=== PATIENT | male | born 1975 | race Caucasian/White ===

== ENCOUNTER 2019-12-25 16:18 | Emergency (ER) | payer BC, SELFPAY ==
[2019-12-25] MEDS ORDERED: ASPIRIN 81 MG CHEWABLE TABLET ONE (17:24)
[2019-12-25] MEDS ORDERED: NA CHLORIDE 0.9% 500 ML ONE (17:25)
[2019-12-25] MEDS ORDERED: NITROGLYCERIN 0.4 MG/TAB SL ONE ×2 (17:25→17:26)
--- NOTE | 2019-12-25 17:35 | RAD REPORT ---
EXAM DESCRIPTION: RAD - Chest Single View - 12/25/2019 5:05 pm CLINICAL HISTORY: CHEST PAIN COMPARISON: April 2016 TECHNIQUE: AP portable chest image was obtained 12/25/2019 5:05 pm . FINDINGS: Lungs are clear. Heart and vasculature are normal. No measurable pleural effusion and no p neumothorax. No acute bony abnormality seen. No acute aortic findings suspected. IMPRESSION: No acute cardiopulmonary process. No significant change from comparison.
[2019-12-25 17:48] LABS: Protime INR 0.93
[2019-12-25 17:49] LABS: Absolute Lymphocytes (CBC) 1.3 K/uL (0.7-4.9); Basophils % 0.8 % (0-1.3); Hematocrit 45.3 % (39.6-49.0); MPV 9.5 fL (7.6-11.3); RBC Red Blood Cell Count 5.13 M/uL (4.33-5.43)
[2019-12-25 17:57] LABS: ALT/SGPT 38 U/L (12-78); Alkaline Phosphatase 82 U/L (45-117); BUN Blood Urea Nitrogen 21 mg/dL (7-18); Bicarbonate 26 mmol/L (21-32); Bilirubin Direct < 0.1 mg/dL (0-0.2); Bilirubin Total 0.2 mg/dL (0.2-1.0); Glucose Level 123 mg/dL (74-106); NT PRO-BNP 6 pg/mL (<125); Sodium Level 143 mmol/L (136-145); Troponin (Emerg Dept Use Only) < 0.02 ng/mL (0.0-0.045)
[2019-12-25 17:58] LABS: AST/SGOT 21 U/L (15-37); Magnesium 2.2 mg/dL (1.8-2.4)
[2019-12-25] MEDS ORDERED: KETOROLAC 30 MG/ML INJ ONE (18:42)
--- NOTE | 2019-12-25 19:05 | ER ---
Nurse's Notes [facility] Name: Fabio Cunningham Jr Age: 44 yrs Sex: Male : 1975 Arrival Date: 12/25/2019 Time: 16:20 Bed 17 [facility] MD: Diagnosis: Chest pain, unspecified Presentation: 12/24 16:28 Chief complaint: Patient states: Chest pressure off/on for 1 month. Today chest ll1 pressure is more constant, noticed feeling lightheaded. Coronavirus screen: Client denies travel out of the [place] in the last 14 days. At this time, the client does not indicate any symptoms associated with coronavirus-19. Ebola Screen: Patient denies travel to an Ebola-affected area in the 21 days before illness onset. Initial Sepsis Screen: Does the patient meet any 2 criteria? HR > 90 bpm. No. Patient's initial sepsis screen is negative. Does the patient have a suspected source of infection? No. Patient's initial sepsis screen is negative. Risk Assessment: Do you want to hurt yourself or someone else? Patient reports no desire to harm self or others. Onset of symptoms was November 23, 2021. 16:28 Method Of Arrival: Ambulatory ll1 16:28 Acuity: FLOYD 3 ll1 Historical: - Allergies: 16:32 Cortisone; ll1 - PMHx: 16:32 Depression; Migraines; chest pains; ll1 - PSHx: 16:32 Appendectomy; ll1 - Immunization history:: Flu vaccine is not up to date. - Social history:: Smoking status: Patient reports the use of cigarette tobacco products, smokes one-half pack cigarettes per day. Screenin:43 Abuse screen: Denies threats or abuse. Denies injuries from another. Nutritional zb screening: No deficits noted. Tuberculosis screening: No symptoms or risk factors identified. Fall Risk None identified. No fall in past 12 months (0 pts). No secondary diagnosis (0 pts). IV access (20 points). Ambulatory Aid- None/Bed Rest/Nurse Assist (0 pts). Gait- Normal/Bed Rest/Wheelchair (0 pts) Mental Status- Oriented to own ability (0 pts). Total Ko Fall Scale indicates No Risk (0-24 pts). Assessment: 17:36 General: Appears in no apparent distress. comfortable, obese, well groomed, Behavior is zb calm, cooperative, appropriate for age, Reports feeling ill for 0-12 hours, fatigue for Denies fever, feeling ill. Pain: Complains of pain in anterior aspect of right upper chest, anterior aspect of left upper chest and mid-sternal area Pain does not radiate. Pain began pt states that he's been having intermittent chest pain off and on for about 1 month. today about about 2-3 hours ago pt started to feel fatigued, chest pain and pressure. Neuro: Level of Consciousness is awake, alert, obeys commands, confused, Oriented to person, place, time, situation. Cardiovascular: Capillary refill < 3 seconds in bilateral fingers. Cardiovascular: Reports shortness of breath, Denies diaphoresis, nausea. Respiratory: Airway is patent Trachea midline Respiratory effort is even, unlabored, Respiratory pattern is regular, symmetrical. GI: No signs and/or symptoms were reported involving the gastrointestinal system. : No signs and/or symptoms were reported regarding the genitourinary system. EENT: No signs and/or symptoms were reported regarding the EENT system. Derm: Skin is intact, is healthy with good turgor, Skin is pink, warm \T\ dry. Musculoskeletal: Circulation, motion, and sensation intact. Capillary refill < 3 seconds, in bilateral fingers. 18:50 Reassessment: Patient appears in no apparent distress at this time. Patient and/or zb family updated on plan of care and expected duration. Pain level reassessed. Patient is alert, oriented x 3, equal unlabored respirations, skin warm/dry/pink. 19:20 General: Appears in no apparent distress. Behavior is calm, cooperative, appropriate wh for age. Pain: Denies pain. Neuro: Level of Consciousness is awake, alert, obeys commands, Oriented to person, place, time, situation, Appropriate for age. Cardiovascular: Heart tones S1 S2. Respiratory: Airway is patent Respiratory effort is even, unlabored, Respiratory pattern is regular, symmetrical, Breath sounds are clear bilaterally. GI: Abdomen is flat, non-distended. : No signs and/or symptoms were reported regarding the genitourinary system. EENT: No signs and/or symptoms were reported regarding the EENT system. Derm: Skin is intact, is healthy with good turgor, Skin is pink, warm \T\ dry. normal. Musculoskeletal: Circulation, motion, and sensation intact. 20:30 Reassessment: Patient appears in no apparent distress at this time. No changes from previously documented assessment. Patient and/or family updated on plan of care and expected duration. Pain level reassessed. Patient is alert, oriented x 3, equal unlabored respirations, skin warm/dry/pink. Patient states feeling better. Patient states symptoms have improved. Vital Signs: 16:28 BP 139 / 91; Pulse 102; Resp 18; Temp 98.2; Pulse Ox 96% ; Weight 111.13 kg; Height 6 ll1 ft. 2 in. (187.96 cm); Pain 4/10; 17:36 BP 130 / 84; Pulse 9; Resp 17; Pulse Ox 95% on R/A; zb 18:50 BP 132 / 79; Pulse 84; Resp 16; Pulse Ox 99% on R/A; Pain 4/10; zb 19:30 BP 119 / 72; Pulse 72; Resp 16; Pulse Ox 95% on R/A; wh 20:30 BP 138 / 4; Pulse 83; Resp 16; Pulse Ox 96% on R/A; wh 16:28 Body Mass Index 31.46 (111.13 kg, 187.96 cm) ll1 ED Course: 16:20 Patient arrived in ED. ag5 16:31 Triage completed. ll1 16:33 Arm band placed on Patient placed in an exam room, on a stretcher. ll1 16:34 Anasatsiia Francisco, REBECCA is Primary Nurse. ph 16:35 Harshad Almeida PA is PHCP. cp 16:35 Maciej Bowers MD is Attending Physician. cp 17:06 XRAY Chest (1 view) In Process Unspecified. EDMS 17:29 Initial lab(s) drawn, by tx, sent to lab. Inserted saline lock: 22 gauge in right ph forearm, using aseptic technique. Blood collected. 17:43 Patient has correct armband on for positive identification. Placed in gown. Bed in low zb position. Call light in reach. Side rails up X 1. nuclear monitoring technician on. Pulse ox on. NIBP on. Notified ED physician of other EKG results. Door closed. Noise minimized. Warm blanket given. Head of bed elevated. 17:45 Patient maintains SpO2 saturation greater than 95% on room air. zb 19:04 Mike Rosales is Hospitalizing Provider. cp 19:37 Primary Nurse role handed off by Anastasiia Francisco RN mw2 20:11 Miguelito Vazquez MD is Referral Physician. cp 20:40 Eze Cantrell is Primary Nurse. 20:42 No provider procedures requiring assistance completed. IV discontinued, intact, wh bleeding controlled, No redness/swelling at site. Administered Medications: 17:29 Not Given (Pt took 325 ASA at home): Aspirin Chewable Tablet 324 mg PO once; 81 mg ph tablets x 4 17:32 Drug: NS 0.9% 500 ml Route: IV; Rate: bolus; Site: right femoral; zb 18:43 Follow up: Response: No adverse reaction; IV Status: Completed infusion; IV Intake: zb 500ml 20:42 Follow up: Response: No adverse reaction; IV Status: Completed infusion 18:43 Drug: TORadol - Ketorolac 15 mg Route: IVP; Site: left forearm; zb 20:42 Follow up: Response: No adverse reaction; Pain is decreased wh 18:50 Not Given (Other Intervention Used): Nitroglycerin 0.4 mg Sublingual once zb Intake: 18:43 IV: 500ml; Total: 500ml. zb Outcome: 19:04 Decision to Hospitalize by Provider. cp 20:12 Discharge ordered by . 20:42 Discharged to home ambulatory, with family. 20:42 Condition: stable 20:42 Discharge instructions given to patient, family, Instructed on discharge instructions, follow up and referral plans. no drinking with medication, medication usage, POC Demonstrated understanding of instructions, follow-up care, medications, POC Prescriptions given X 1. 20:44 Patient left the ED. Signatures: Dispatcher [employer] EDMS Anastasiia Francisco, RN Harshad Gray ph, PA PA cp Habalo, Winsy Lorena Ho mw2 Radha Williamson 5 Mikayla Pepper RN RN ll1 Dafne Perkins RN RN zb
--- NOTE | 2019-12-25 19:06 | EDPHYS ---
Physician Documentation [facility] Name: Fabio Cunningham Jr Age: 44 yrs Sex: Male : 1975 Arrival Date: 12/25/2019 Time: 16:20 Bed 17 Private MD: ED Physician Maciej Bowers HPI: 12/24 16:45 This 44 yrs old Male presents to ER via Ambulatory with complaints of Chest cp Pain. 16:45 The patient or guardian reports chest pain that is located primarily in the anterior cp chest wall, bilaterally. 16:45 Onset: 1 month(s) ago, intermittent. The pain does not radiate. The chest pain is cp described as a pressure. Duration: The patient or guardian reports multiple episodes, that wax and wane. Modifying factors: The symptoms are alleviated by nothing. the symptoms are aggravated by nothing. Severity of pain: in the emergency department the pain has improved mildly. Patient reports starting having chest pain today while at work that was worse than usual. Has been seen by cardiology in the past with stress test that was negative. Historical: - Allergies: 16:32 Cortisone; ll1 - PMHx: 16:32 Depression; Migraines; chest pains; ll1 - PSHx: 16:32 Appendectomy; ll1 - Immunization history:: Flu vaccine is not up to date. - Social history:: Smoking status: Patient reports the use of cigarette tobacco products, smokes one-half pack cigarettes per day. ROS: 16:50 Constitutional: Negative for body aches, chills, fever, poor PO intake. cp 16:50 Eyes: Negative for injury, pain, redness, and discharge. cp 16:50 ENT: Negative for ear pain, sore throat, difficulty swallowing, difficulty handling secretions. 16:50 Neck: Negative for pain with movement, pain at rest, stiffness. 16:50 Cardiovascular: Positive for chest pain, Negative for edema, palpitations. 16:50 Respiratory: Negative for cough, shortness of breath, wheezing. 16:50 Abdomen/GI: Negative for abdominal pain, nausea, vomiting, and diarrhea, black/tarry stool, rectal bleeding. 16:50 Back: Negative for pain at rest, pain with movement. Exam: 17:00 Constitutional: The patient appears in no acute distress, alert, awake, cp non-diaphoretic, non-toxic, well developed, well nourished. 17:00 Head/Face: Normocephalic, atraumatic. cp 17:00 Eyes: Periorbital structures: appear normal, Conjunctiva: normal, no exudate, no injection, Sclera: no appreciated abnormality, Lids and lashes: appear normal, bilaterally. 17:00 ENT: External ear(s): are unremarkable, Nose: is normal, Mouth: Lips: moist, Oral mucosa: moist, Posterior pharynx: is normal, airway is patent, no erythema, no exudate. 17:00 Neck: ROM/movement: is normal, is supple, without pain, no range of motions limitations, no nuchal rigidity. 17:00 Chest/axilla: Inspection: normal, Palpation: is normal, no crepitus, no tenderness. 17:00 Cardiovascular: Rate: tachycardic, Rhythm: regular, Heart sounds: murmur, not appreciated, Edema: is not appreciated, JVD: is not appreciated. 17:00 Respiratory: the patient does not display signs of respiratory distress, Respirations: normal, no use of accessory muscles, no retractions, labored breathing, is not present, Breath sounds: are clear throughout, no decreased breath sounds, no stridor, no wheezing. 17:00 Abdomen/GI: Inspection: abdomen appears normal, Bowel sounds: active, all quadrants, Palpation: abdomen is soft and non-tender, in all quadrants. 17:00 Back: pain, is absent, ROM is normal. 17:00 Neuro: Orientation: to person, place \T\ time. Mentation: is normal, Motor: moves all fours, strength is normal. 17:30 ECG was reviewed by the Attending Physician. cp Vital Signs: 16:28 BP 139 / 91; Pulse 102; Resp 18; Temp 98.2; Pulse Ox 96% ; Weight 111.13 kg; Height 6 ll1 ft. 2 in. (187.96 cm); Pain 4/10; 17:36 BP 130 / 84; Pulse 9; Resp 17; Pulse Ox 95% on R/A; zb 18:50 BP 132 / 79; Pulse 84; Resp 16; Pulse Ox 99% on R/A; Pain 4/10; zb 19:30 BP 119 / 72; Pulse 72; Resp 16; Pulse Ox 95% on R/A; wh 20:30 BP 138 / 4; Pulse 83; Resp 16; Pulse Ox 96% on R/A; wh 16:28 Body Mass Index 31.46 (111.13 kg, 187.96 cm) ll1 MDM: 16:41 Patient medically screened. cp 17:00 Differential diagnosis: abnormal EKG, acute myocardial infarction, acute pericarditis, cp chest wall pain, pleurisy, pneumonia, pneumothorax, stable angina, unstable angina. 20:13 Data reviewed: vital signs, lab test result(s), EKG, radiologic studies, plain films. cp 20:13 Test interpretation: by ED physician or midlevel provider: ECG, chest xray negative for cp infiltrates. ED course: VSS. Chest pain markedly improved after administration of toradol. Repeat troponin negative. Will discharge to home for continued monitoring. 12/24 16:42 Order name: Basic Metabolic Panel; Complete Time: 18:06 cp 12/24 16:42 Order name: CBC with Diff; Complete Time: 18:06 12/24 16:42 Order name: LFT's; Complete Time: 18:06 cp 12/24 16:42 Order name: Magnesium; Complete Time: 18:06 cp 12/24 16:42 Order name: NT PRO-BNP; Complete Time: 18:06 cp 12/24 16:42 Order name: PT-INR; Complete Time: 18:06 cp 12/24 16:42 Order name: Troponin (emerg Dept Use Only); Complete Time: 18:06 cp 12/24 16:42 Order name: XRAY Chest (1 view); Complete Time: 18:06 cp 12/24 19:24 Order name: CRP; Complete Time: 20:31 cp 12/24 19:24 Order name: ESR; Complete Time: 20:31 cp 12/24 19:24 Order name: Troponin I; Complete Time: 20:31 cp 12/24 16:42 Order name: EKG; Complete Time: 16:43 cp 12/24 16:42 Order name: Cardiac monitoring; Complete Time: 17:02 cp 12/24 16:42 Order name: EKG - Nurse/Tech; Complete Time: 17:02 12/24 16:42 Order name: IV Saline Lock; Complete Time: 17:29 cp 12/24 16:42 Order name: Labs collected and sent; Complete Time: 17:29 cp 12/24 16:42 Order name: O2 Per Protocol; Complete Time: 17:02 cp 12/24 16:42 Order name: O2 Sat Monitoring; Complete Time: 17:02 cp EC:30 Rate is 87 beats/min. Rhythm is regular. QRS interval is prolonged at 104 msec. QT cp interval is normal. T waves are Flattened in lead aVL. Interpreted by me. Reviewed by me. Administered Medications: 17:29 Not Given (Pt took 325 ASA at home): Aspirin Chewable Tablet 324 mg PO once; 81 mg ph tablets x 4 17:32 Drug: NS 0.9% 500 ml Route: IV; Rate: bolus; Site: right femoral; zb 18:43 Follow up: Response: No adverse reaction; IV Status: Completed infusion; IV Intake: zb 500ml 20:42 Follow up: Response: No adverse reaction; IV Status: Completed infusion wh 18:43 Drug: TORadol - Ketorolac 15 mg Route: IVP; Site: left forearm; zb 20:42 Follow up: Response: No adverse reaction; Pain is decreased wh 18:50 Not Given (Other Intervention Used): Nitroglycerin 0.4 mg Sublingual once zb Disposition: 12/25 06:01 Co-signature as Attending Physician, Maciej Bowers MD. rn Disposition: 12/25/19 20:12 Discharged to Home. Impression: Chest pain, unspecified. - Condition is Stable. - Discharge Instructions: Nonspecific Chest Pain, Aspirin and Your Heart. - Prescriptions for Diclofenac Sodium 75 mg Oral Tablet Sustained Release - take 1 tablet by ORAL route 2 times per day; 30 tablet. - Medication Reconciliation Form, Thank You Letter, Antibiotic Education, Prescription Opioid Use form. - Follow up: Miguelito Vazquez MD; When: 2 - 3 days; Reason: chest pain. - Problem is new. - Symptoms have improved. Signatures: Dispatcher [employer] EDMS Maciej Bowers MD MD rn Roszak, Josh, PA PA [id number] Page, Corey, PA PA cp Habalo, Winsy wh Lewis, Lynsay, RN RN ll1 Dafne Perkins RN RN zAnastasiia Martin RN ph Corrections: (The following items were deleted from the chart) 12/24 20:11 19:04 Hospitalization Ordered by Mike Rosales for Observation. Preliminary diagnosis cp is Chest pain, unspecified. Bed requested for Telemetry/MedSurg (observation). Status is Observation. Condition is Stable. Problem is new. Symptoms have improved. cp 20:44 20:12 12/25/2019 20:12 Discharged to Home. Impression: Chest pain, unspecified. wh Condition is Stable. Forms are Medication Reconciliation Form, Thank You Letter, Antibiotic Education, Prescription Opioid Use. Follow up: Miguelito Vazquez; When: 2 - 3 days; Reason: chest pain. Problem is new. Symptoms have improved. cp
[2019-12-25 20:05] LABS: C-Reactive Protein < 2.90 mg/L (<3.00); Troponin I < 0.02 ng/mL (0.0-0.045)
[2019-12-25 21:17] VITALS: TEMP 98.2
[2019-12-25 21:23] VITALS: BP 138/4; O2SAT 96
--- NOTE | 2019-12-25 22:09 | P.CNS ---
Date of Consult: 12/25/19 This is a 44-year-old gentleman that was presented in the emergency room for chest pain. Patient stated that he has had on off chest pain for several years. Has seen Dr. Dumont twice in the past 3 years and has had stress tests with echos done. Last echo being a year ago. Has not needed angiogram thus far. Patient stated that at 2:00 p.m. today is chest pressure was much stronger than what he is used to. Patient was worked up in the emergency room and given Toradol as patient had taken some aspirin prior to arrival. Patient now has no chest pain whatsoever. Patient stated that the Toradol and aspirin combined gave him complete chest pain relief. Patient does have a smoking history and cholesterol but at this time is not on any medications. No significant family history of heart disease. Repeat troponin and CRP along with ESR are all negative. At this time I discussed with patient that we can definitely admit cara moraes for serial troponin to rule out but patient opted to go home at that time as he is now chest pain free and had a repeat troponin both of which were negative. I set patient up to see Cardiology in the next day or so. Patient well aware that he can come back at any time for re-evaluation and admission if he were to feel worse. Emergency room provider also present for all discussions in agreed with discharge plan.
--- NOTE | 2019-12-27 07:36 | EKG ---
Test Date: 2019-12-25 Test Time: 17:21:06 Director Of Resource Development: YESENIA MEASUREMENT RESULTS: Intervals: Rate: 87 NV: 142 QRSD: 104 QT: 344 QTc: 413 [place]: P: 75 NV: 142 QRS: 45 T: 64 INTERPRETIVE STATEMENTS: Normal sinus rhythm Incomplete right bundle branch block Borderline ECG Compared to ECG 04/28/2016 00:30:00 Incomplete right bundle-branch block now present Sinus arrhythmia no longer present Electronically Signed On 12-27-19 07:32:42 CROWN PRESSER by Miguelito Vazquez
== END 2019-12-25 20:44 | disposition home or self-care (01) ==
LOC: ER 16:18
DX: R07.9 Chest pain, unspecified (principal); F17.210 Nicotine dependence, cigarettes, uncomplicated; Z88.8 Allergy status to other drugs, medicaments and biological substances
CPT/HCPCS: 36415; 71045; 80048; 80076; 83735; 83880; 84484; 85025; 85610; 85652; 86140; 93005; 96361; 96374; 99285; J7040

== ENCOUNTER 2024-02-29 08:23 | Emergency (ER) | payer SELFPAY ==
[2024-02-29] MEDS ORDERED: LEVALBUTEROL 1.25 MG/3 ML NEB ONE (09:29)
[2024-02-29] MEDS ORDERED: HYDROCODONE/CHLORPHEN 5 ML/OSYR ONE (09:29)
[2024-02-29 09:37] LABS: SARS-CoV-2 Antigen CONTROL BLUE LINE VIS/BG OK; SARS-CoV-2 Antigen Rapid Res Negative (Negative)
--- NOTE | 2024-02-29 10:14 | RAD REPORT ---
EXAMINATION: ONE VIEW CHEST XR CLINICAL INDICATION: Male, 48 years old.,COUGH TECHNIQUE: Frontal chest projection is submitted. Examination is limited by patient positioning and t echnique. COMPARISON: 12/25/2019 FINDINGS: The lungs are well inflated and clear. No pneumothorax or sizable effusion. The heart is normal in s ize. Mediastinal contours are unremarkable. IMPRESSION: No acute intrathoracic abnormalities.
--- NOTE | 2024-02-29 10:49 | ER ---
Nurse's Notes [facility] Name: Fabio Cunningham Jr Age: 48 yrs Sex: Male : 1975 Arrival Date: 02/29/2024 Time: 08:23 Bed DIS1 Private MD: Diagnosis: Influenza due to identified novel influenza A virus with other respiratory manifestations;COPD/ Chronic obstructive pulmonary disease, unspecified Presentation: 02/28 08:58 Chief complaint: Patient states: cough, congestion, fever, chills, body aches since iw Tuesday. Coronavirus screen: Client presents with at least one sign or symptom that may indicate coronavirus-19. Ebola Screen: No symptoms or risks identified at this time. Initial Sepsis Screen: Does the patient meet any 2 criteria? Does the patient have a suspected source of infection? No. Patient's initial sepsis screen is negative. Risk Assessment: Do you want to hurt yourself or someone else?. Onset of symptoms was February 26, 2024. 08:58 Method Of Arrival: Ambulatory iw 08:58 Acuity: FLOYD 4 iw Triage Assessment: 11:16 General: Appears in no apparent distress. uncomfortable, Behavior is calm, cooperative. tm6 Respiratory: Reports cough that is productive, Onset: The symptoms/episode began/occurred at an unknown time. the patient has mild shortness of breath. Historical: - Allergies: 08:58 Cortisone; topical; iw - PMHx: 08:58 chest pains; Depression; Migraines; COPD; iw - Immunization history:: Adult Immunizations not up to date. - Infectious Disease History:: Denies. - Social history:: Smoking status: Patient reports the use of cigarette tobacco products, smokes one pack cigarettes per day. - Family history:: not pertinent. - Hospitalizations: : No recent hospitalization is reported. Screenin:15 [facility] ED Fall Risk Assessment (Adult) History of falling in the last 3 months, tm6 including since admission No falls in past 3 months (0 pts) Confusion or Disorientation No (0 pts) Intoxicated or Sedated No (0 pts) Impaired Gait No (0 pts) Mobility Assist Device Used No (0 pt) Altered Elimination No (0 pt) Score/Fall Risk Level 0 - 2 = Low Risk Oriented to surroundings, Maintained a safe environment, Educated pt \T\ family on fall prevention, incl call for assistance when getting out of bed. Abuse screen: Denies threats or abuse. Denies injuries from another. Nutritional screening: No deficits noted. Tuberculosis screening: No symptoms or risk factors identified. Assessment: 11:15 Pain: Denies pain. Respiratory: Airway is patent Respiratory effort is even, unlabored, tm6 Breath sounds are clear. Vital Signs: 09:02 BP 134 / 85; Pulse 94; Resp 18; Temp 98.6; Pulse Ox 95% ; Weight 108.86 kg; Height 6 bp ft. 2 in. ; 11:14 BP 122 / 85; Pulse 95; Resp 19; Temp 99.3(O); Pulse Ox 93% on R/A; MAP 97 mmHg; tm6 09:02 Body Mass Index 30.81 (108.86 kg, 187.96 cm) bp ED Course: 08:27 Patient arrived in ED. ra3 08:29 Maciej Bowers MD is Attending Physician. rn 08:43 Marlen Ji, RN is Primary Nurse. iw 08:54 Primary Nurse role handed off by Marlen Ji, REBECCA bp 08:54 Vick Soto, REBECCA is Primary Nurse. bp 08:58 Triage completed. iw 08:59 Arm band placed on. iw 09:16 XRAY Chest (1 view) In Process Unspecified. EDMS 11:15 Patient has correct armband on for positive identification. Provided Education on: use tm6 of prescription. 11:15 No provider procedures requiring assistance completed. Patient did not have IV access tm6 during this emergency room visit. Administered Medications: 09:10 Drug: Levalbuterol Inhalation 1.25 mg Inhalation once Route: Inhalation; bp 09:30 Drug: Tussionex Pennkinetic ER PO Suspension 5 ml PO once Route: PO; bp 09:39 Follow up: Response: No adverse reaction bp Medication: 11:15 VIS not applicable for this client. tm6 Outcome: 10:49 Discharge ordered by . rn 11:15 Discharged to home ambulatory, with family, tm6 11:15 Condition: stable 11:15 Discharge instructions given to patient, family, Instructed on discharge instructions, follow up and referral plans. medication usage, Demonstrated understanding of instructions, follow-up care, medications, Prescriptions given X 1, 11:16 Patient left the ED. tm6 Signatures: Dispatcher [employer] EDMS Garrison, Marlen, RN RN iw Maciej Bowers MD MD rn Peltier, Brian, RN RN bp Magdalena Shelton RN RN 6 Gricelda Zeng
--- NOTE | 2024-02-29 10:50 | EDPHYS ---
Physician Documentation [facility] Name: Fabio Cunningham Jr Age: 48 yrs Sex: Male : 1975 Arrival Date: 02/29/2024 Time: 08:23 Bed DIS1 Private MD: ED Physician Maciej Bowers HPI: 02/28 10:47 This 48 yrs old Male presents to ER via Ambulatory with complaints of Cold Symptoms, rn Productive Cough - 2of2. 10:47 The patient or guardian reports cough, flu symptoms. Onset: The symptoms/episode rn began/occurred 3 day(s) ago. Severity of symptoms: At their worst the symptoms were mild, in the emergency department the symptoms are unchanged. Associated signs and symptoms: Pertinent positives: fever, Pertinent negatives: chest pain. The patient has not experienced similar symptoms in the past. Historical: - Allergies: 08:58 Cortisone; topical; iw - PMHx: 08:58 chest pains; Depression; Migraines; COPD; iw - Immunization history:: Adult Immunizations not up to date. - Infectious Disease History:: Denies. - Social history:: Smoking status: Patient reports the use of cigarette tobacco products, smokes one pack cigarettes per day. - Family history:: not pertinent. - Hospitalizations: : No recent hospitalization is reported. ROS: 10:47 Constitutional: Positive for fever and chills Cardiovascular: Negative for chest pain rn Respiratory: Positive for cough MS/Extremity: Negative for injury and deformity, Neuro: Positive for headache and generalized weakness Exam: 10:47 Constitutional: This is a well developed, well nourished patient who is awake, alert, rn and in no acute distress. Cardiovascular: Regular rate and rhythm. No pulse deficits. Respiratory: Mild tachypnea Skin: No cyanosis Neuro: Awake and alert, GCS 15 Vital Signs: 09:02 BP 134 / 85; Pulse 94; Resp 18; Temp 98.6; Pulse Ox 95% ; Weight 108.86 kg; Height 6 bp ft. 2 in. ; 11:14 BP 122 / 85; Pulse 95; Resp 19; Temp 99.3(O); Pulse Ox 93% on R/A; MAP 97 mmHg; tm6 09:02 Body Mass Index 30.81 (108.86 kg, 187.96 cm) bp MDM: 08:29 Medical Screening Exam initiated rn 10:47 Differential Diagnosis: Influenza Upper Respiratory Infection Viral Syndrome Pneumonia. rn Data reviewed: vital signs, nurses notes, lab test result(s), radiologic studies, plain films, and as a result, I will discharge patient. Counseling: I had a detailed discussion with the patient and/or guardian regarding the historical points, exam findings, and any diagnostic results supporting the discharge/admit diagnosis, lab results, radiology results, the need for outpatient follow up, to return to the emergency department if symptoms worsen or persist or if there are any questions or concerns that arise at home. Response to treatment: the patient's symptoms have markedly improved after treatment, and as a result, I will discharge patient. Special discussion: I discussed with the patient/guardian in detail that at this point there is no indication for admission to the hospital. It is understood, however, that if the symptoms persist or worsen the patient needs to return immediately for re-evaluation. 10:50 Independent interpretation of the following test(s) in the Emergency Department X-Ray: rn My interpretation is Chest x-ray images negative for pneumonia or pneumothorax per my interpretation. 02/28 08:30 Order name: Flu; Complete Time: 10:30 rn 02/28 08:30 Order name: Strep rn 02/28 08:30 Order name: SARS-COV-2 Antigen Rapid; Complete Time: 10:30 rn 02/28 09:41 Order name: Throat Culture EDMS 02/28 08:30 Order name: XRAY Chest (1 view); Complete Time: 10:30 rn Administered Medications: 09:10 Drug: Levalbuterol Inhalation 1.25 mg Inhalation once Route: Inhalation; bp 09:30 Drug: Tussionex Pennkinetic ER PO Suspension 5 ml PO once Route: PO; bp 09:39 Follow up: Response: No adverse reaction bp Disposition Summary: 02/29/24 10:49 Discharge Ordered Notes: Location: Home rn Problem: new rn Symptoms: have improved rn Condition: Stable rn Diagnosis - Influenza due to identified novel influenza A virus with other respiratory rn manifestations - COPD/ Chronic obstructive pulmonary disease, unspecified rn Followup: rn - With: Private Physician - When: As needed - Reason: Recheck today's complaints, Re-evaluation by your physician Discharge Instructions: - Discharge Summary Sheet rn - Influenza, Adult rn - Chronic Obstructive Pulmonary Disease Exacerbation rn Forms: - Medication Reconciliation Form rn - Antibiotic returns clerk - Prescription Opioid Use rn - Patient Portal Instructions rn - Leadership Thank You Letter rn Prescriptions: - Prednisone 20 mg Oral Tablet - take 3 tablets ORAL route once daily for 5 days; 15 tablet; Refills: 0, Product rn Selection Permitted Signatures: Dispatcher [employer] Marlen Aguilera RN Maciej Veronica MD MD rn Peltier, Brian, RN RN bp
[2024-02-29 11:22] VITALS: BP 122/85; TEMP 99.3; O2SAT 93
== END 2024-02-29 11:16 | disposition home or self-care (01) ==
LOC: ER 08:23
DX: J10.1 Influenza due to other identified influenza virus with other respiratory manifestations (principal); J44.9 Chronic obstructive pulmonary disease, unspecified; Z11.52 Encounter for screening for COVID-19
CPT/HCPCS: 36415; 71045; 87070; 87081; 87804; 87811; 99284; J7614

== ENCOUNTER 2024-10-01 11:26 | Emergency (ER) | payer SELFPAY ==
--- NOTE | 2024-10-01 13:56 | RAD REPORT ---
EXAM: Extremity Nonvascular Complete HISTORY: left axillary lymphadenopathy COMPARISON: None TECHNIQUE: Sonographic grayscale and color flow imaging of the left axilla including the region of in terest as described by the patient. FINDINGS: Small hypoechoic fluid collections in the left axilla just deep to the skin surface. The largest екатерина ures 5 mm. IMPRESSION: No left axillary lymphadenopathy. Small subcentimeter superficial fluid collections in the left axill a may reflect sebaceous cysts or other benign lesions. Suggest clinical follow-up.
--- NOTE | 2024-10-01 14:01 | ER ---
Nurse's Notes [facility] Name: Fabio Cunningham Jr Age: 48 yrs Sex: Male : 1975 Arrival Date: 10/01/2024 Time: 11:26 Bed 10 Private MD: Diagnosis: Localized swelling, mass and lump, left upper limb-axilla Presentation: 10/01 11:38 Chief complaint: Patient states: HE HAS LT ARMPIT INFLAMMATION 2-2.5 WEEKS. PT REPORTS dd2 IT STARTED ONE NODULE, AND WORSENED. PT DENIES DRAINAGE. REPORTS PAIN. Coronavirus screen: At this time, the client does not indicate any symptoms associated with coronavirus-19. Ebola Screen: No symptoms or risks identified at this time. Initial Sepsis Screen: Does the patient meet any 2 criteria? No. Patient's initial sepsis screen is negative. Does the patient have a suspected source of infection? No. Patient's initial sepsis screen is negative. Risk Assessment: Do you want to hurt yourself or someone else? Patient reports no desire to harm self or others. Onset of symptoms is unknown. 11:38 Method Of Arrival: Ambulatory dd2 11:38 Acuity: FLOYD 3 dd2 Triage Assessment: 11:41 General: Appears in no apparent distress. uncomfortable, Behavior is calm, cooperative, dd2 appropriate for age. Pain: Complains of pain in left axilla Pain currently is 2 out of 10 on a pain scale. Derm: Abscess located on left axilla is is hot to touch, is red, is raised, Reports itching, pain. Historical: - Allergies: 11:41 Cortisone; topical; dd2 - PMHx: 11:41 chest pains; COPD; Depression; Migraines; dd2 - PSHx: 11:41 Appendectomy; dd2 - Immunization history:: Adult Immunizations up to date. - Infectious Disease History:: Denies. - Social history:: Smoking status: Patient reports the use of cigarette tobacco products, smokes one pack cigarettes per day. Screenin:25 [facility] ED Fall Risk Assessment (Adult) History of falling in the last 3 months, ap3 including since admission No falls in past 3 months (0 pts) Confusion or Disorientation No (0 pts) Intoxicated or Sedated No (0 pts) Impaired Gait No (0 pts) Mobility Assist Device Used No (0 pt) Altered Elimination No (0 pt) Score/Fall Risk Level 0 - 2 = Low Risk Oriented to surroundings, Maintained a safe environment, Educated pt \T\ family on fall prevention, incl call for assistance when getting out of bed, Assessed \T\ reinforced patient's understanding of fall precautions, Hourly rounding (assess needs \T\ fall precautionary measures) done, Used ambulatory aids as needed (educated on \T\ assisted with). Abuse screen: Denies threats or abuse. Nutritional screening: No deficits noted. Tuberculosis screening: No symptoms or risk factors identified. Assessment: 12:24 General: Appears in no apparent distress. Behavior is calm, cooperative, appropriate ap3 for age. Pain: Complains of pain in left axilla. Neuro: Level of Consciousness is awake, alert, obeys commands, Oriented to person, place, time, situation, Appropriate for age. Cardiovascular: Patient's skin is warm and dry. Respiratory: Airway is patent Respiratory effort is even, unlabored, Respiratory pattern is regular, symmetrical. Vital Signs: 11:38 BP 162 / 101; Pulse 88; Resp 17; Temp 97.3; Pulse Ox 98% on R/A; Weight 111.13 kg; dd2 Height 6 ft. 2 in. ; Pain 2/10; 11:38 Body Mass Index 31.46 (111.13 kg, 187.96 cm) dd2 11:38 Pain Scale: Adult dd2 ED Course: 11:29 Patient arrived in ED. cj3 11:31 [facility]idee Perkins PA-C [facility]. sb4 11:31 Harshad Livingston MD is Attending Physician. sb4 11:41 Triage completed. dd2 11:41 Arm band placed on right wrist. dd2 12:11 Patient placed in an exam room, on a stretcher. ll1 12:25 Patient has correct armband on for positive identification. Placed in gown. Bed in low ap3 position. Call light in reach. Side rails up X 1. Provided Education on: call light education. Pulse ox on. NIBP on. Door closed. Noise minimized. 12:41 Extremity Nonvascular Complete In Process Unspecified. EDMS 14:05 No provider procedures requiring assistance completed. Patient did not have IV access ap3 during this emergency room visit. Administered Medications: No medications were administered Medication: 14:05 VIS not applicable for this client. ap3 Outcome: 14:00 Discharge ordered by . sb4 14:05 Discharged to home ambulatory, ap3 14:05 Condition: good 14:05 Discharge instructions given to patient, Instructed on discharge instructions, follow up and referral plans. medication usage, Demonstrated understanding of instructions, follow-up care, medications, Prescriptions given X 1, 14:05 Patient left the ED. ap3 Signatures: Dispatcher [employer] EDMS Leann Figueroa RN RN ap3 Mikayla Pepper RN RN ll1 Aidee Perkins, PA-C PA-C sb4 ASHLEY BRO RN RN dd2 Iveth Monge cj3
--- NOTE | 2024-10-01 14:01 | EDPHYS ---
Physician Documentation [facility] Name: Fabio Cunningham Jr Age: 48 yrs Sex: Male : 1975 Arrival Date: 10/01/2024 Time: 11:26 Bed 10 Private MD: ED Physician Harshad Livingston HPI: 10/01 12:23 This 48 yrs old Male presents to ER via Ambulatory with complaints of Swollen Lymph sb4 Nodes- ARM PIT. 12:23 Painful swollen lymph nodes in left armpit for about a week and a half now. No drainage sb4 or redness from the area, but they are tender to the touch. No radiation of pain. Denies any recent illnesses or skin infections. Denies any prior episodes of this. Does smoke daily and has a history of COPD but no other medical history. Denies any fever or chills. Historical: - Allergies: 11:41 Cortisone; topical; dd2 - PMHx: 11:41 chest pains; COPD; Depression; Migraines; dd2 - PSHx: 11:41 Appendectomy; dd2 - Immunization history:: Adult Immunizations up to date. - Infectious Disease History:: Denies. - Social history:: Smoking status: Patient reports the use of cigarette tobacco products, smokes one pack cigarettes per day. ROS: 12:23 Constitutional: Negative for fever, chills, and weight loss, sb4 12:23 Skin: Positive for per HPI, 12:23 All other systems are negative, Exam: 12:23 Constitutional: This is a well developed, well nourished patient who is awake, alert, sb4 and in no acute distress. Head/Face: Normocephalic, atraumatic. Eyes: Extra-ocular motions intact. Periorbital areas with no swelling, redness, or edema. ENT: Mucous membranes moist. Respiratory: No increased work of breathing, no retractions or nasal flaring. 12:27 Skin: several small tender palpable, movable masses left axilla without drainage or sb4 erythema. Vital Signs: 11:38 BP 162 / 101; Pulse 88; Resp 17; Temp 97.3; Pulse Ox 98% on R/A; Weight 111.13 kg; dd2 Height 6 ft. 2 in. ; Pain 04/02; 11:38 Body Mass Index 31.46 (111.13 kg, 187.96 cm) dd2 11:38 Pain Scale: Adult dd2 MDM: 11:33 Medical Screening Exam initiated sb4 12:27 Differential diagnosis: Lymphadenitis, hydradenitis suppurativa, abscesses, malignancy. sb4 13:25 Data reviewed: vital signs, nurses notes, radiologic studies, and as a result, I will sb4 discharge patient. Care significantly affected by the following chronic conditions: Chronic Obstructive Pulmonary Disease. Counseling: I had a detailed discussion with the patient and/or guardian regarding the historical points, exam findings, and any diagnostic results supporting the discharge/admit diagnosis, the presence of at least one elevated blood pressure reading (>120/80) during this emergency department visit, radiology results, the need for outpatient follow up, for definitive care, to return to the emergency department if symptoms worsen or persist or if there are any questions or concerns that arise at home. 10/01 12:20 Order name: Extremity Nonvascular Complete; Complete Time: 13:57 EDMS Administered Medications: No medications were administered Disposition Summary: 10/01/24 14:00 Discharge Ordered Notes: Location: Home sb4 Problem: an ongoing problem sb4 Symptoms: are unchanged sb4 Condition: Stable sb4 Diagnosis - Localized swelling, mass and lump, left upper limb - axilla sb4 Followup: sb4 - With: Private Physician - When: 1 week - Reason: If symptoms return, Recheck today's complaints, Re-evaluation by your physician Discharge Instructions: - Discharge Summary Sheet sb4 - Skin Abscess, [id number] sb4 Forms: - Antibiotic Education sb4 - Patient Portal Instructions sb4 - Leadership Thank You Letter sb4 Prescriptions: - Bactrim DS 800-160 mg Oral Tablet - take 1 tablet ORAL route every 12 hours for 10 days; 20 tablet; Refills: 0, sb4 Product Selection Permitted Addendum: 10/04/2024 14:37 Co-signature as Attending Physician, Harshad Livingston MD I agree with the assessment and c diamond plan of care. Signatures: Dispatcher [employer] Harshad Stout MD MD cha Brown, Sophia, BETHANYC RICHARD sb4 ASHLEY BRO RN RN dd2 Corrections: (The following items were deleted from the chart) 10/01 12:20 12:15 Extrmty Nonvasular Limited+[id number] ordered. EDMS EDMS
[2024-10-01 14:14] VITALS: BP 162/101; TEMP 97.3; O2SAT 98
== END 2024-10-01 14:05 | disposition home or self-care (01) ==
LOC: ER 11:26
DX: R22.32 Localized swelling, mass and lump, left upper limb (principal)
CPT/HCPCS: 76881; 99283